=== PATIENT | female | born 1970 | race Caucasian/White ===

== ENCOUNTER 2018-07-13 12:30 | Inpatient (IN) ==
[2018-07-13] MEDS ORDERED: Albuterol 2.5 MG/3 ML NEBULIZER IH ONE ×2 (12:57→14:12)
[2018-07-13] MEDS ORDERED: cefOXitin 2,000 MG in Water for inj. (sterile) 20 ML 20 ML IVP ONE (12:57)
[2018-07-13] MEDS ORDERED: Ringers Solution, Lactated 1,000 ML IVC SCH ×3 (13:00→16:44)
[2018-07-13] MEDS ORDERED: Famotidine 20 MG/2 ML VIAL IVP ONE (13:04)
[2018-07-13] MEDS ORDERED: Acetaminophen IV 1,000 MG/100 ML INFUS..BTL IVPB ONE (13:04)
[2018-07-13] MEDS ORDERED: Scopolamine Patch 1.5 MG PATCH.TD72 TD ONE (13:04)
[2018-07-13] MEDS ORDERED: Pregabalin 75 MG CAPSULE PO ONE (13:05)
--- NOTE | 2018-07-13 13:08 | Anesthesia Evaluation PreOp ---
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: Denies Any Significant HX Other Medical History: Other (Morbid Obesity) Anesthesia History: No Prior Anesthetic Complications : No Test: Negative Alcohol Use: none Drug use: none Medications and Allergies Acyclovir [Zovirax] 800 mg PO 5XD #25 tablet 05/01/15 [Rx] MethylPREDNISolone [Medrol] 4 mg PO BIDWM #21 tablet 05/01/15 [Rx] Sprintec 28 Day Tablet 05/01/15 [History] TraMADol [Ultram] 50 mg PO Q6HR PRN #20 tablet 05/01/15 [Rx] Allergy/AdvReac Type Severity Reaction Status Date / Time No Known Allergies Allergy Verified 05/01/15 13:17 - Meds/Allergy Pre-op Review Medications Reviewed: Yes Allergies Reviewed: Yes Beta Blockers on Current Med List: No Anesthesia Results - Labs Hgb 12.7 Hct 38.0 Plt 319 Na 141 K 3.9 Creat 0.70 BUN 12 Anesthesia Exam O2 Sat Height 1.7 m Height 1.7 m Weight 127.006 kg Weight 127.006 kg O2 Sat by Pulse Oximetry 97 Vital Signs Temp Pulse Resp BP Pulse Ox 98.1 F 89 18 144/80 97 07/13/18 12:58 07/13/18 12:58 07/13/18 12:58 07/13/18 12:58 07/13/18 12:58 Height: 5'7 Weight: 280 lbs NPO (# of Hours): MN Pain Scale: 0 - HEENT Pupil (Motor): Pupils equal, EOMI Mallampati: II Teeth: Normal Oral Opening: Greater than 3 - BULL LADLE TENDER LOC: Oriented BULL LADLE TENDER Motor: Normal RUE, Normal LUE, Normal RLE, Normal LLE, Normal Face BULL LADLE TENDER Sensory: Normal: RUE, LUE, RLE, LLE, Face - Cardiac Rhythm: Regular Murmur: None JVD: No Carotid Bruit: No - Pulmonary Breath Sounds: bilateral Clear Respiratory Effort: Symmetrical Anesthesia Assess/Plan ASA Score: 3 ([place] Asthma) Level of consciousness: Cooperative Anesthetic Plan: General Autologous Blood: No Monitoring Plan: Standard Monitors Recovery Plan: PACU (Discussed GA, possible TAP Block if Open, agrees to proceed)
--- NOTE | 2018-07-13 13:30 | History & Physical Report ---
Date of Encounter: 07/13/18 Time of Encounter: 13:29 24 Hour HP Update - Instructions Instructions: If the History and Physical is less than 30 days old and was completed prior to A.M. admission and or procedure and has NOT been updated on calendar day of procedure please complete this update prior to performing procedure. - Update Patient reports changes in Medical Condition: No Changes in examination, assessment, or condition: No Changes in Medication: No Preop tests/diagnostics Reviewed: Yes Pre-Op MRSA Screen: Negative Surgery Remains Indicated: Yes Consent for Planned Operative Procedure(s) Verified: Yes - Pre-Operative Checklist Preoperative Checklist Indicated: Yes Prophylactic Antibiotic Ordered: Yes Home Medications Include Beta Mel: No Beta Mel Taken Today (Day of Surgery): No Beta Mel Taken Yesterday (Day Prior to Surgery): No Is VTE Prophylaxis Indicated?: Yes
[2018-07-13] MEDS ORDERED: Lidocaine -MPF 1% 5 ML AMPUL ONE (13:59)
[2018-07-13] MEDS ORDERED: *HR* FentaNYL (PF) 100 MCG/2 ML VIAL ONE (13:59)
[2018-07-13] MEDS ORDERED: *HR* Midazolam HCl 2 MG/2 ML VIAL ONE (14:00)
[2018-07-13] MEDS ORDERED: *HR* Morphine Sulfate/PF 10 MG/10 ML AMPUL ONE (14:00)
[2018-07-13] MEDS ORDERED: Dexamethasone 4 MG/ML VIAL ONE (14:03)
[2018-07-13] MEDS ORDERED: Lidocaine -MPF 2% 2 ML VIAL ONE (14:03)
[2018-07-13] MEDS ORDERED: *HR* Propofol 200 MG/20 ML VIAL IVP ONE (14:03)
[2018-07-13] MEDS ORDERED: Ondansetron 4 MG/2 ML VIAL ONE (14:03)
[2018-07-13] MEDS ORDERED: Lidocaine -MPF 4% 5 ML AMPUL ONE (14:04)
[2018-07-13] MEDS ORDERED: *HR* Rocuronium Bromide 50 MG/5 ML VIAL ONE (14:04)
[2018-07-13] MEDS ORDERED: *HR* Meperidine 25 MG/ML SYRINGE IVP PRN (14:12)
[2018-07-13] MEDS ORDERED: *HR* OxyCODONE/APAP 5/325 TABLET PO PRN (14:12)
[2018-07-13] MEDS ORDERED: Naloxone 0.4 MG/ML INJ IVP PRN (14:12)
[2018-07-13] MEDS ORDERED: *HR* Promethazine 25 MG/ML VIAL IVP PRN (14:12)
[2018-07-13] MEDS ORDERED: Ondansetron 4 MG/2 ML VIAL IVP ONE (14:12)
[2018-07-13] MEDS ORDERED: *HR* HYDROmorphone (PF) 1 MG/ML SYRINGE IVP PRN (14:12)
[2018-07-13] MEDS ORDERED: *HR* Belladonna Alkaloids/Opium 30 MG RECTAL SUPPOSITORY RC ONE (14:31)
--- NOTE | 2018-07-13 14:41 | Anesthesia Procedures ---
Date of Encounter: 07/13/18 Time of Encounter: 13:05 Procedures: Anesthesia - Epidural/Spinal Patient ID/Chart reviewed: Yes Patient examined: Yes Supplemental Oxygen: Nasal Cannula (2) Sedation: Versed (mg): 2 Sedation: Fentanyl (mcg): 50 Site Prep: Aseptic Technique Patient position: upright Local Anesthetic: Lidocaine 1% Interspace Used: L2-L3 Loss of Resistance (RUDY): No Blood: No CSF: Yes Paresthesia: No Spinal Needle Gauge: 24 Spinal Dose: 5 mg marcaine, duramorph 0.3mg
[2018-07-13] MEDS ORDERED: *HR* PHENYLEPHRINE 1,000 MCG/10 ML SYRINGE IVP ONE ×2 (14:59→15:19)
[2018-07-13] MEDS ORDERED: EPHEDrine 50 MG/ML VIAL ONE (15:22)
--- NOTE | 2018-07-13 16:48 | OB/GYN Procedure Note ---
Hysterectomy - Diagnosis Date of procedure: 07/13/18 Hysterectomy pre-op: other Post-op diagnosis: same - Procedure Hysterectomy procedure: total abdominal hysterectomy, bilateral salpingo- oophorectomy Surgeon: Fracisco Still Was there an dental office assistant present: Yes Centerless Grinding Machine Adjuster: Waleska Weston Anesthesia provider: Gil Fontana Anesthesia Type: Spinal Estimated blood loss (cc): 100 Complications: none Urine output (cc): 300 Specimens: right ovary, uterus, cervix, left ovary, right fallopian tube, left fallopian tube Disposition: PACU Narrative: Patient was taken to the operating room with IV in place. She was given general anesthesia as well as spinal she was then prepped and draped in usual sterile fashion. A Pfannenstiel incision was made through patient's previous scar. It was carried sharply through subcutaneous fatty tissue to the fascial layers reached. The fascia was then nicked in the midline meticulously incised bilaterally. The mesh was located. We began taking some sutures. We were able to get enough of the fascia that we felt we could close. At this time Dr. Rangel did step in to make sure we are okay and he felt that we closed with 0 Prolene. We felt that we could do the closure. The left and we continued the case. The fascia was then incised bilaterally passive was then dissected vertically for exposure. The rectus abdominis muscle sutures and separate the midline and the peritoneum was sharply entered dissected vertically. The O'Alvaro-O'Marx retractors placed and the bowel was packed away nicely and in the usual fashion. The uterus was located it was grasped with 2 curved Zoila's. The [place] was clamped and cut bilaterally are suture ligated with 0 Vicryl suture. The anterior and posterior leaf of the broad ligament were then developed. The infundibulopelvic ligament was then clamped cut and suture ligated 2 with 0 Vicryl suture taken the ovary and tubes with the specimen. The uterine arteries were then skeletonized bilaterally clamped cut and ligated with 0 Vicryl suture. Continue down the sides the uterus with straight Isaac's until the cervicovaginal margin was reached. We then placed 2 curved Heaneys around the cervix. Was then amputated from the vaginal cuff. The vaginal cuff was closed with 0 Vicryl suture in [id number]. Patient's abdomen was very deep. We used long instruments for this entire case. At this point the pelvic cavity was rinsed thoroughly with sterile water times 2C no bleeding the procedure was terminated. Sponge needle count correct 2. Instrument was removed and pelvic cavity. The subfascial region was examined. The fascia was then reapproximated with 0 Prolene from one edge the midline for the observation midline. Suprafascial region was rinsed thoroughly with sterile water 2. It was reapproximated with interrupted stitches of 3-0 Vicryl suture. The skin was then closed in subsequent fashion with 4-0 Monocryl in subsequent fashion. The patient was then cleansed and awoken she was then taken to the recovery room in stable condition.
--- NOTE | 2018-07-13 17:42 | Anesthesia Evaluation Post Op ---
Date of Encounter: 07/13/18 Time of Encounter: 17:40 - Vital Signs Vital Signs: Vital Signs/O2 Sat, Most Current Temp Pulse Resp BP Pulse Ox 98.6 F 93 18 118/73 94 07/13/18 16:57 07/13/18 17:27 07/13/18 17:27 07/13/18 17:27 07/13/18 17:27 - Lungs Lungs: Clear Ascult./Percussion - Airway Airway: Non-obstructed, Obstructed - Cardiovascular Regular Rate, Baseline Rhythm - Mental Status Mental Status: Asleep with brisk response to light stimulation - Pain Pain Scale: 0 Pain Scale used: Numeric (1 - 10) - Nausea Vomiting Nausea Vomiting: Not Present - Hydration Hydration: Ice chips, Golden catheter Notes: 07/13/18 17:41 Vital Signs/O2 Sat, Most Current Temp Pulse Resp BP Pulse Ox 98.6 F 93 18 118/73 94 07/13/18 16:57 07/13/18 17:27 07/13/18 17:27 07/13/18 17:27 07/13/18 17:27 - Discharge PostOp Status: Transfer Patient to floor
[2018-07-13] MEDS ORDERED: Acetaminophen IV 1,000 MG/100 ML INFUS..BTL IVPB SCH (18:00)
[2018-07-13] MEDS: Acetaminophen IV 1,000 MG/100 ML INFUS..BTL IVPB SCH (21:32)
[2018-07-13] MEDS: Ondansetron 4 MG/2 ML VIAL IVP PRN (21:39)
[2018-07-14] MEDS: ceFAZolin 1,000 MG in Water for inj. (sterile) 20 ML 10 ML IVP SCH ×3 (00:01→15:40)
[2018-07-14] MEDS: Acetaminophen IV 1,000 MG/100 ML INFUS..BTL IVPB SCH ×3 (03:08→15:40)
[2018-07-14] MEDS: Ondansetron 4 MG/2 ML VIAL IVP PRN (06:33)
[2018-07-14 06:42] LABS: Basophils % 0.1 %; Hematocrit 35.2 % (35.3-44.9); Hemoglobin 11.7 g/dL (11.5-15.4); Immature Granulocytes % 0.5 % (0-4); Lymphocytes # 0.9 K/mcL (0.6-4.6); Lymphocytes % 4.5 %; Mean Corpuscular HGB Conc 33.2 g/dL (31.6-35.5); Mean Corpuscular Hemoglobin 29.6 pg (28.0-33.3); Mean Corpuscular Volume 89.1 fL (83.0-100.0); Mean Platelet Volume 11.4 fL (9.4-12.4); Monocytes # 0.9 K/mcL (0.0-1.3); Monocytes % 4.2 %; Neutrophils # 18.4 K/mcL (1.6-8.9); Platelet Count 284 K/mcL (140-400); Red Blood Count 3.95 M/mcL (3.82-4.97); Red Cell Distribution Width 12.2 % (11.5-14.5); Segmented Neutrophils % 90.7 %
--- NOTE | 2018-07-14 14:41 | Event Note ---
Date of Encounter: 07/14/18 Time of Encounter: 09:00 S: 48yo female s/p TIFFANY/BSO who presents for scheduled surgery for menorrhagia and d iscomfort. POD#1. Pain controlled per patient, does report intermittent nausea. Denies vaginal bleeding or abdominal bleeding. Not yet passing flatus. Golden removed, awaiting spontaneous void. Sitting up in chair without assistance. Able to ambulate with assistane. O: Labs WNL VSS, HDS, afebrile General: well-appearing, appears stated age Abdomen: soft, non-TTP, +BS Incision: CDI, dressing in place, no shadowing, to be removed on POD#2 Pelvic: deferred A/P: 48yo s/p TIFFANY/BSO, POD#1 for menorrhagia and dysmenorrhea 1. Postoperative management - pain controlled with po meds only - OK to ADAT not yet passing flatus, no BM, non-acute abdomen - heme: EBL low intraoperatively, CBC ordered this AM - infection ppx: ancef x 24hr postop, also given intraoperatively - DVT ppx: continuous SCDs while inpatient - OK for tylenol and ibuprofen use Dispo: Patient to remain inpatient until POD#2. Continue to progress toward milestone(s). Likely for DC to home tomorrow. MD MIESHA
[2018-07-14] MEDS ORDERED: *HR* OxyCODONE/APAP 5/325 TABLET PO PRN (18:26)
[2018-07-14] MEDS ORDERED: Ondansetron ODT 4 MG TAB.RAPDIS SL PRN (18:27)
[2018-07-14] MEDS: Ibuprofen 400 MG TABLET PO PRN (19:18)
[2018-07-15] MEDS: Ibuprofen 400 MG TABLET PO PRN ×2 (00:23→04:29)
--- NOTE | 2018-07-15 07:13 | Event Note ---
Date of Encounter: 07/15/18 Time of Encounter: 07:10 DAILY PROGRESS NOTE DAY 2 S: 48yo female s/p TIFFANY/BSO who presents for scheduled surgery for menorrhagia and discomfort. POD#2. IV infiltrated overnight, converted all IV medication(S) to PO. Pain adequately controlled with percocet. Denies vaginal bleeding or abdominal bleeding. Passing flatus. Spontaneously voiding. Ambulating, tolerated a regular diet. O: Labs WNL VSS, HDS, afebrile General: well-appearing, appears stated age Abdomen: soft, non-TTP, +BS Incision: CDI, dressing in place, dressing removed today, incision closed by suture. Pelvic: deferred A/P: 48yo s/p TIFFANY/BSO, POD#2 for menorrhagia and dysmenorrhea 1. Postoperative management - pain controlled with po meds only - tolerating regular diet without n/v/d, non-acute abdomen on exam - heme: EBL low intraoperatively, CBC WNL - infection ppx: ancef x 24hr postop, also given intraoperatively; afebrile, VSS, HDS - DVT ppx: continuous SCDs while inpatient - OK for tylenol and ibuprofen use Dispo: Discharged to home today on POD#2. MD MIESHA
--- NOTE | 2018-07-15 07:18 | Discharge Summary ---
Date of Encounter: 07/15/18 Time of Encounter: 07:10 - Discharge Diagnosis (1) S/P abdominal hysterectomy Priority: Primary Status: Acute - Discharge Medications Prescriptions: Oxycodone HCl/Acetaminophen [Percocet 5-325 mg Tablet] 1 each PO Q4-6H PRN 10 Days #20 tablet PRN Reason: Pain Home Medications: Cholecalciferol (Vitamin D3) [Vitamin D] 5,000 unit PO DAILY 07/13/18 [History] Cyanocobalamin (Vitamin B-12) [Vitamin B-12] 5,000 mcg SL DAILY 07/13/18 [History] L.acidoph,Paracasei, B.lactis [Probiotic] 1 cap PO DAILY 07/13/18 [History] Magnesium Oxide [Magnesium] 250 mg PO DAILY 07/13/18 [History] Mv,Ca,Fe,Min/FA/Guarana/Caff [One Daily Tablet] 1 each PO DAILY 07/13/18 [History] Potassium 99 mg PO DAILY 07/13/18 [History] Turmeric Root Extract [Turmeric] 500 mg PO DAILY 07/13/18 [History] Oxycodone HCl/Acetaminophen [Percocet 5-325 mg Tablet] 1 each PO Q4-6H PRN 10 Days #20 tablet 07/15/18 [Rx] Allergies/Adverse Reactions: Allergy/AdvReac Type Severity Reaction Status Date / Time No Known Allergies Allergy Verified 07/13/18 13:11 Data Procedures and tests throughout hospitalization: Laboratory Tests 07/14/18 06:07 WBC 20.3 H RBC 3.95 Hgb 11.7 Hct 35.2 L MCV 89.1 MCH 29.6 MCHC 33.2 RDW 12.2 Plt Count 284 MPV 11.4 Immature Gran % 0.5 Seg Neutrophils % 90.7 Lymphocytes % 4.5 Monocytes % 4.2 Eosinophils % 0.0 Basophils % 0.1 Neutrophils # 18.4 H Lymphocytes # 0.9 Monocytes # 0.9 Eosinophils # 0.0 Basophils # 0.0 Labs on day of discharge: None performed on POD#2, normal labs on POD#1. 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 Uncomplicated abdominal surgery along with uneventful postoperative hospitalization. She was appropriately transitioned to PO meds from IV on POD#1. Able to tolerate a regular diet with intermittent but controlled nausea. PFannenstiel skin incision was closed using suture, well- aligned and well-healed. Appropriately tender to palpate abdomen but non-acute. PAtient was discharged to home with abdominal hyst postoperative instruction(s) on POD#2. She was scheduled for follow up with Dr. Still in 3-4 weeks. Discharged to home with 20# of percocet and given precaution(s) before leaving the floor. Deena Ortega MD OBGYN [facility] Time Attestation: Total time spent providing and/or coordinating discharge services: Exam - Constitutional Vitals: Temp Pulse Resp BP Pulse Ox 98.1 F 62 16 112/61 99 07/15/18 04:00 07/15/18 04:00 07/15/18 04:30 07/15/18 04:00 07/15/18 04:00 General appearance IM: A&O X 0 - Respiratory Respiratory exam: Present: CTAB - Cardiovascular Cardiovascular exam IM: Present: RRR - GI/Abdominal GI/Abdominal exam IM: normal bowel sounds Incision: normal, intact - Rectal Rectal exam: deferred - External exam: normal external exam - Extremities Exam Extremities exam IM: Present: full ROM - Neurological Exam Neurological exam: CN II-XII intact - VTE Documentation of Mechanical Device: Intermittent pneumatic compression device
[2018-07-15 09:03] VITALS: BP 113/65
== END 2018-07-15 13:12 | disposition home or self-care (01) | DRG 742 ==
LOC: SAMDAY 12:30 → 1NENUOBS 17:48
PROVIDERS: ADMIT Obstetrics & Gynecology; ATTEND Obstetrics & Gynecology

== ENCOUNTER 2018-10-09 17:08 | Observation (INO) ==
--- NOTE | 2018-10-09 17:56 | Emergency Department Note ---
Disposition Clinical Impression: Right flank pain Disposition: Still a Patient Referrals: NONE,PCP [Primary Care Provider] - Forms: ED Satisfaction Letter, Work/School Release Abdominal Pain HPI - General Chief Complaint: ED Abdominal Pain Stated Complaint: Post Surg. Pain/Infection Time Seen by Provider: 10/09/18 17:37 Source: patient Mode of arrival: ambulatory Limitations: no limitations Nursing Notes Reviewed: Yes Vital Signs Reviewed: Yes - History of Present Illness HPI Narrative: 48-year-old female otherwise healthy recently had complete hysterectomy done due to leiomyomas approximately in July presents to the emergency department for right-sided flank pain. Patient states this is the same pain she has had for approximately one month she had she was seen by Dr. Gonzalez prior to the gynecological surgery been done and he did a ultrasound as well as CT scan at that time they did not find any signs of cholecystitis. Patient states the pain is continues and has gotten more sharp and more frequent now. Says worse with any type of movement. Patient states the pain is 6 out of 10 located in the right flank nonradiating any type of movement or jumping makes it worse. Does not change with eating food. Otherwise there is no fevers, chills, nausea, vomiting, headache, blurry vision, neck pain, back pain, chest pain, shortness of breath, changes in bowel movement, pain with urination, pain or tingling going down the arms or legs or generalized weakness. Pain Scale: 10 - Related Data Home Medications Medication Instructions Recorded Confirmed Cholecalciferol (Vitamin D3) 5,000 unit PO DAILY 07/13/18 07/13/18 [Vitamin D] Cyanocobalamin (Vitamin B-12) 5,000 mcg SL DAILY 07/13/18 07/13/18 [Vitamin B-12] L.acidoph,Paracasei, B.lactis 1 cap PO DAILY 07/13/18 07/13/18 [Probiotic] Magnesium Oxide [Magnesium] 250 mg PO DAILY 07/13/18 07/13/18 Mv,Ca,Fe,Min/FA/Guarana/Caff [One 1 each PO DAILY 07/13/18 07/13/18 Daily Tablet] Potassium 99 mg PO DAILY 07/13/18 07/13/18 Turmeric Root Extract [Turmeric] 500 mg PO DAILY 07/13/18 07/13/18 Allergies Allergy/AdvReac Type Severity Reaction Status Date / Time No Known Allergies Allergy Verified 07/13/18 13:11 All systems ED: reviewed and negative except as stated. Review of Systems: As Per HPI Abdominal Pain PMH - Past Medical History Medical history: Reports: asthma, other Female Surgical History: Reports: hysterectomy Psychiatric history: Reports: anxiety, depression - Social History Smoking status: Never smoker Alcohol use: Reports: none Drug use: Reports: none Physical Exam - General Limitations: no limitations General appearance: alert, in no apparent distress - Head Head exam: atraumatic, normocephalic, normal inspection - Eye Eye exam: Present: normal appearance, PERRL, EOMI - ENT ENT exam: normal exam, normal oropharynx, mucous membranes moist - Neck Neck exam: Present: normal inspection, full ROM, trachea midline - Chest Chest inspection: Present: normal inspection, symmetric chest wall rise, tenderness (Mild chest tenderness while palpating the lower portion of the right chest right near the 11th and 12th rib margin. No noticeable erythema no noticeable trauma to the area pain with palpation.) - Respiratory Respiratory exam: Present: normal lung sounds bilaterally - Cardiovascular Cardiovascular exam: Present: regular rate, normal rhythm, normal heart sounds - Abdominal Exam Abdominal exam: Present: soft, Non-Tender, normal bowel sounds. Absent: tenderness, distention, guarding, rebound, rigidity, Pinedo's sign, Rovsing's sign, tenderness at McBurney's Point - Extremities Exam Extremities exam: Present: normal inspection, full ROM. Absent: tenderness, pedal edema - Back Exam Back exam: Present: normal inspection, full ROM. Absent: tenderness - Neurological Exam Neurological exam: Present: alert, oriented X3 - Skin Skin exam: Present: warm, dry, intact, normal color Course Course Narrative: Patient refusing any pain medications. We have basic labs including CBC, BMP, hepatic panel as well as get a CT abdomen and pelvis without contrast. Disposition pending results Vital Signs Temperature 97.6 F 10/09/18 17:11 Pulse Rate 84 10/09/18 17:11 Respiratory Rate 18 10/09/18 17:11 Blood Pressure 172/105 10/09/18 17:11 O2 Sat by Pulse Oximetry 100 10/09/18 17:11 Temperature 97.6 F 10/09/18 17:11 Pulse Rate 84 10/09/18 17:11 Respiratory Rate 18 10/09/18 17:11 Blood Pressure 172/105 10/09/18 17:11 O2 Sat by Pulse Oximetry 100 10/09/18 17:11 Oxygen Delivery Oxygen Delivery Room Air Abdominal Pain - MDM Narrative Medical decision making narrative: Patient's lab and imaging are not back at this time. Patient will be signed out to Dr. Mcgraw please follow-up with their note for full plan and disposition. Stable at time of sign out
--- NOTE | 2018-10-09 18:26 | Emergency Department Note ---
Disposition Clinical Impression: Abdominal pain Qualifiers: Abdominal location: generalized Qualified Code(s): R10.84 - Generalized abdominal pain Disposition: Still a Patient Referrals: NONE,PCP [Primary Care Provider] - Forms: ED Satisfaction Letter, Work/School Release General Adult HPI - General Chief complaint: ED Abdominal Pain Stated complaint: Post Surg. Pain/Infection Time Seen by Provider: 10/09/18 17:37 Source: patient Mode of arrival: ambulatory Limitations: no limitations Nursing Notes Reviewed: Yes Vital Signs Reviewed: Yes - History of Present Illness HPI Narrative: Attestation note I examined this patient and my medical decision-making was reviewed with the Resident Physician/NETWORKING SPECIALIST/PA. I agree with the documented findings, disposition and treatment plan as described except to the extent set forth below Patient seen with physician construction assistant Heather Isabel, please see copy of her note for details of this patient encounter Briefly: 48-year-old female had a total abdominal hysterectomy recently [facility]'s been having persistent right flank pain. Concern MIP infection. Although she has had no fever nausea vomiting just hurts when she moves no postprandial association she was worked up preop for gallbladder issues and consulted on by a surgeon who said that everything was okay as far as her gallbladder. Patient abdomen is soft there is no surgical tenderness noted patient get a CBC chemistry panel and abdominal pelvic CT scan with no contrast and urinalysis. Disposition pending. Patient stable Pain Scale: 10 - Related Data Home Medications Medication Instructions Recorded Confirmed Cholecalciferol (Vitamin D3) 5,000 unit PO DAILY 07/13/18 07/13/18 [Vitamin D] Cyanocobalamin (Vitamin B-12) 5,000 mcg SL DAILY 07/13/18 07/13/18 [Vitamin B-12] L.acidoph,Paracasei, B.lactis 1 cap PO DAILY 07/13/18 07/13/18 [Probiotic] Magnesium Oxide [Magnesium] 250 mg PO DAILY 07/13/18 07/13/18 Mv,Ca,Fe,Min/FA/Guarana/Caff [One 1 each PO DAILY 07/13/18 07/13/18 Daily Tablet] Potassium 99 mg PO DAILY 07/13/18 07/13/18 Turmeric Root Extract [Turmeric] 500 mg PO DAILY 07/13/18 07/13/18 Allergies Allergy/AdvReac Type Severity Reaction Status Date / Time No Known Allergies Allergy Verified 07/13/18 13:11 Past Medical History - Past Medical History Medical history: Reports: asthma, other Psychiatric history: Reports: anxiety, depression - Social History Smoking Status: Never smoker Smokeless Tobacco Status: No Alcohol use: Reports: none Drug use: Reports: none Physical Exam - General Limitations: no limitations General appearance: alert, in no apparent distress Course Vital Signs Temperature 97.6 F 10/09/18 17:11 Pulse Rate 84 10/09/18 17:11 Respiratory Rate 18 10/09/18 17:11 Blood Pressure 172/105 10/09/18 17:11 O2 Sat by Pulse Oximetry 100 10/09/18 17:11 Temperature 97.6 F 10/09/18 17:11 Pulse Rate 84 10/09/18 17:11 Respiratory Rate 18 10/09/18 17:11 Blood Pressure 172/105 10/09/18 17:11 O2 Sat by Pulse Oximetry 100 10/09/18 17:11 Oxygen Delivery Oxygen Delivery Room Air
[2018-10-09 18:46] LABS: Basophils # 0.1 K/mcL (0.0-0.2); Basophils % 0.5 %; Eosinophils # 0.2 K/mcL (0.0-0.6); Hematocrit 37.7 % (35.3-44.9); Hemoglobin 12.5 g/dL (11.5-15.4); Immature Granulocytes % 0.3 % (0-4); Lymphocytes # 3.2 K/mcL (0.6-4.6); Lymphocytes % 29.3 %; Mean Corpuscular HGB Conc 33.2 g/dL (31.6-35.5); Mean Corpuscular Hemoglobin 29.1 pg (28.0-33.3); Mean Corpuscular Volume 87.7 fL (83.0-100.0); Monocytes # 0.8 K/mcL (0.0-1.3); Monocytes % 7.5 %; Neutrophils # 6.6 K/mcL (1.6-8.9); Platelet Count 240 K/mcL (140-400); Red Cell Distribution Width 12.4 % (11.5-14.5); Segmented Neutrophils % 60.4 %
[2018-10-09 19:06] LABS: Alanine Aminotransferase 39 Units/L (7-52); Albumin 4.4 g/dL (3.5-5.7); Albumin/Globulin Ratio 1.6 (1.1-2.2); Alkaline Phosphatase 86 Units/L (34-104); Aspartate Amino Transferase 18 Units/L (13-39); BUN/Creatinine Ratio 18 (6-26); Bilirubin,Direct 0.1 mg/dL (0.0-0.2); Bilirubin,Indirect 0.2 mg/dL (0.0-1.2); Bilirubin,Total 0.3 mg/dL (0.3-1.0); Blood Urea Nitrogen 14 mg/dL (6-20); Calcium 9.2 mg/dL (8.6-10.3); Carbon Dioxide 28 mEq/L (23-29); Chloride 106 mEq/L (98-107); Globulin 2.8 g/dL (2.4-3.5); Glucose 103 mg/dL (70-105); Osmolality,Calculated 295 (280-300); Potassium 3.5 mEq/L (3.5-5.1); Sodium 142 mEq/L (136-145); Total Protein 7.2 g/dL (6.4-8.9); eGFR For Non-African Americans > 60 (> 60)
[2018-10-09 19:51] LABS: Bilirubin,Urine Negative (Negative); Blood,Urine Trace (Negative); Clarity,Urine Clear (Clear); Color,Urine Yellow (Yellow); Glucose,Urine (UA) Normal (Normal); Ketones,Urine Negative (Negative); Leukocyte Esterase,Urine Trace (Negative); Nitrite,Urine Negative (Negative); Protein,Urine Negative (Neg-Trace); Specific Gravity,Urine 1.016 (1.010-1.025); Urobilinogen,Urine Normal (Normal)
[2018-10-09 19:53] LABS: Bacteria,Urine None Seen per hpf (None-Few); Hyaline Casts,Urine None Seen per lpf (None-Few); Squamous Epithelial Cell,Urine Many per lpf (None-Few); WBC,Urine 0-3 per hpf (0-3)
--- NOTE | 2018-10-09 21:38 | Emergency Department Note ---
Disposition Clinical Impression: Right flank pain Abdominal pain Qualifiers: Abdominal location: unspecified location Qualified Code(s): R10.9 - Unspecified abdominal pain Hernia, ventral Qualifiers: Obstruction and gangrene presence: without obstruction or gangrene Qualified Code(s): K43.9 - Ventral hernia without obstruction or gangrene Disposition: Admitted As Inpatient Condition: Fair Referrals: NONE,PCP [Primary Care Provider] - Forms: ED Satisfaction Letter, Work/School Release Time of Disposition: 21:38 General Adult HPI - General Chief complaint: ED Abdominal Pain Stated complaint: Post Surg. Pain/Infection Time Seen by Provider: 10/09/18 17:37 Source: patient Mode of arrival: ambulatory Limitations: no limitations - History of Present Illness Pain Scale: 4 - Related Data Home Medications Medication Instructions Recorded Confirmed Cholecalciferol (Vitamin D3) 5,000 unit PO DAILY 07/13/18 07/13/18 [Vitamin D] Cyanocobalamin (Vitamin B-12) 5,000 mcg SL DAILY 07/13/18 07/13/18 [Vitamin B-12] L.acidoph,Paracasei, B.lactis 1 cap PO DAILY 07/13/18 07/13/18 [Probiotic] Magnesium Oxide [Magnesium] 250 mg PO DAILY 07/13/18 07/13/18 Mv,Ca,Fe,Min/FA/Guarana/Caff [One 1 each PO DAILY 07/13/18 07/13/18 Daily Tablet] Potassium 99 mg PO DAILY 07/13/18 07/13/18 Turmeric Root Extract [Turmeric] 500 mg PO DAILY 07/13/18 07/13/18 Allergies Allergy/AdvReac Type Severity Reaction Status Date / Time No Known Allergies Allergy Verified 07/13/18 13:11 Past Medical History - Past Medical History Medical history: Reports: asthma, other Psychiatric history: Reports: anxiety, depression - Social History Smoking Status: Never smoker Smokeless Tobacco Status: No Alcohol use: Reports: none Drug use: Reports: none Physical Exam - General Limitations: no limitations General appearance: alert, in no apparent distress Course Vital Signs Temperature 97.6 F 10/09/18 17:11 Pulse Rate 84 10/09/18 17:11 Respiratory Rate 18 10/09/18 17:11 Blood Pressure 172/105 10/09/18 17:11 O2 Sat by Pulse Oximetry 100 10/09/18 17:11 Temperature 97.6 F 10/09/18 17:11 Pulse Rate 89 10/09/18 20:50 Respiratory Rate 16 10/09/18 20:50 Blood Pressure 126/70 10/09/18 20:50 O2 Sat by Pulse Oximetry 98 10/09/18 20:50 Oxygen Delivery Oxygen Delivery Room Air Medical Decision Making - Lab Data Result diagrams: 10/09/18 18:35 10/09/18 18:35 Lab Results 10/09/18 10/09/18 10/09/18 Range/Units 18:35 18:35 19:42 WBC 10.9 (4.3-11.1) K/mcL RBC 4.30 (3.82-4.97) M/mcL Hgb 12.5 (11.5-15.4) g/dL Hct 37.7 (35.3-44.9) % MCV 87.7 (83.0-100.0) fL MCH 29.1 (28.0-33.3) pg MCHC 33.2 (31.6-35.5) g/dL RDW 12.4 (11.5-14.5) % Plt Count 240 (140-400) K/mcL MPV 11.0 (9.4-12.4) fL Immature Gran % 0.3 (0-4) % Seg Neutrophils % 60.4 % Lymphocytes % 29.3 % Monocytes % 7.5 % Eosinophils % 2.0 % Basophils % 0.5 % Neutrophils # 6.6 (1.6-8.9) K/mcL Lymphocytes # 3.2 (0.6-4.6) K/mcL Monocytes # 0.8 (0.0-1.3) K/mcL Eosinophils # 0.2 (0.0-0.6) K/mcL Basophils # 0.1 (0.0-0.2) K/mcL Sodium 142 (136-145) mEq/L Potassium 3.5 (3.5-5.1) mEq/L Chloride 106 (98-107) mEq/L Carbon Dioxide 28 (23-29) mEq/L BUN 14 (6-20) mg/dL Creatinine 0.78 (0.60-1.20) mg/dL Est GFR ( Amer) > 60 (> 60) Est GFR (Non-Af Amer) > 60 (> 60) BUN/Creatinine Ratio 18 (6-26) Glucose 103 (70-105) mg/dL Calculated Osmolality 295 (280-300) Calcium 9.2 (8.6-10.3) mg/dL Total Bilirubin 0.3 (0.3-1.0) mg/dL Direct Bilirubin 0.1 (0.0-0.2) mg/dL Indirect Bilirubin 0.2 (0.0-1.2) mg/dL AST 18 (13-39) Units/L ALT 39 (7-52) Units/L Alkaline Phosphatase 86 (34-104) Units/L Serum Total Protein 7.2 (6.4-8.9) g/dL Albumin 4.4 (3.5-5.7) g/dL Globulin 2.8 (2.4-3.5) g/dL Albumin/Globulin Ratio 1.6 (1.1-2.2) Urine Color Yellow (Yellow) Urine Clarity Clear (Clear) Urine pH 6.0 (5.0-8.0) pH Units Ur Specific [place] 1.016 (1.010-1.025) Urine Protein Negative (Neg-Trace) mg/dL Urine Glucose (UA) Normal (Normal) mg/dL Urine Ketones Negative (Negative) mg/dL Urine Blood Trace H (Negative) Urine Nitrite Negative (Negative) Urine Bilirubin Negative (Negative) Urine Urobilinogen Normal (Normal) mg/dL Ur Leukocyte Esterase Trace H (Negative) Urine Microscopic RBC 3-5 H (0-3) per hpf Urine Microscopic WBC 0-3 (0-3) per hpf Ur Squamous Epith Cells Many H (None-Few) per lpf Urine Bacteria None Seen (None-Few) per hpf Hyaline Casts None Seen (None-Few) per lpf Attestation Statement - Attestation Attestation: I examined this patient and my medical decision-making was reviewed with the [employer]/PA/Advanced Practice Nurse/Resident Physician. I agree with the documented findings, disposition and treatment plan as described except to the extent set forth below. I did see the patient is spoke with her and examined her and did assume care from Dr. Damon and Dr. Rhodes and I did review the CT scan showing what looks like an incarcerated hernia and when I examine the patient due to body habitus I was not able to palpate a hernia that I could reduce so I did speak with Dr. Pierce Peacock who accepts the patient for admission under her service and asked that she be given pain medicine here as well as normal saline 125 ml per hour and also sublingual oxycodone 5 mg every 4 hours when necessary. Patient to remain nothing by mouth. Patient will be admitted to her service. [id number]
[2018-10-09] MEDS ORDERED: *HR* FentaNYL (PF) 100 MCG/2 ML VIAL IVP ONE (21:41)
[2018-10-09] MEDS ORDERED: Ondansetron 4 MG/2 ML VIAL IVP ONE (21:41)
[2018-10-09] MEDS ORDERED: 0.9 % Sodium Chloride 1,000 ML IVC ONE (21:41)
[2018-10-10] MEDS ORDERED: OXYCODONE Oral CONC 10 MG/0.5 ML ORAL.SYG SL PRN
--- NOTE | 2018-10-10 06:30 | General Surg History&Physical ---
Date of Encounter: 10/10/18 Time of Encounter: 06:15 Assessment and Plan (1) Right upper quadrant abdominal pain Current Visit: Yes Status: Acute The assessment and plan as outlined above was discussed with the patient and/or family members who expressed understanding and agreement. All questions were answered. Discussed with the patient her diagnosis of RUQ abd pain and incisional ventral hernia. RUQ abd pain is not related to VH. VH can be addressed on an outpt basis. Will check HIDA with GB EF to complete evaluation of GB. If HIDA is + will recommend lap latisha. If HIDA is negative will recommend EGD/Colonoscopy and, perhaps, GI consult outpt for irritable bowel syndrome. (2) Hernia, ventral Current Visit: Yes Status: Acute The assessment and plan as outlined above was discussed with the patient and/or family members who expressed understanding and agreement. All questions were answered. Qualifiers: Obstruction and gangrene presence: without obstruction or gangrene Qualified Code(s): K43.9 - Ventral hernia without obstruction or gangrene History of Present Illness Chief complaint: right abdominal pain HPI: Ms. Martinez is a 48 year old female who presents to [facility] [place] ED complaining of severe right abdominal pain. She states that the pain is chronic and intermittent however, this acute episode is severe and unremitting. She has a hyster in Jul. and now has an incisional VH. She states that the pain has been episodically progressing since before that time. GB US from 06/26 was normal. She denies any n/v. She reports regular BM. She denies SOB or CP. She does report hx asthma. She denies any colonoscopy but, is due for a screening and has a +family hx colon cancer. Past Med Surg Social Fam HX - Past Medical History Medical history: asthma, other Additional medical history: chronic UTI, cysts kidneys, tubal ligation Psychiatric history: anxiety, depression - Past Surgical History Surgical History: appendectomy, , hysterectomy Additional surgical history: 2 c-sections, 2 hernia repairs with mesh - Social History Smoking Status: Never smoker Smokeless Tobacco Status: No Alcohol use: none Drug use: none Medications and Allergies Cholecalciferol (Vitamin D3) [Vitamin D] 5,000 unit PO DAILY 07/13/18 [History] Cyanocobalamin (Vitamin B-12) [Vitamin B-12] 5,000 mcg SL DAILY 07/13/18 [History] L.acidoph,Paracasei, B.lactis [Probiotic] 1 cap PO DAILY 07/13/18 [History] Magnesium Oxide [Magnesium] 250 mg PO DAILY 07/13/18 [History] Mv,Ca,Fe,Min/FA/Guarana/Caff [One Daily Tablet] 1 each PO DAILY 07/13/18 [History] Potassium 99 mg PO DAILY 07/13/18 [History] Turmeric Root Extract [Turmeric] 500 mg PO DAILY 07/13/18 [History] Allergy/AdvReac Type Severity Reaction Status Date / Time Tree nuts Allergy Difficulty Uncoded 10/09/18 23:27 Breathing Review of Systems All systems PM: The remainder of the systems were reviewed and are negative - Constitutional as per HPI, no anorexia, no fatigue, no fever(s), no headache(s), no weakness, no weight gain, no weight loss - EENT Nose, mouth and throat: no dizziness, no dysphagia, no sore throat - Cardiovascular no chest pain, no dyspnea, no edema - Respiratory no cough, no dyspnea, no wheezing - Gastrointestinal abdominal pain, bloating, cramping, no constipation, no diarrhea, no early satiety, no nausea, no vomiting - Genitourinary Genitourinary: no difficulty urinating, no difficulty voiding, no dysuria, no urinary urgency - Musculoskeletal no back pain, no limited range of motion, no neck pain - Integumentary dry skin, no pruritus, no wounds, no jaundice - Neurological no confusion, no dizziness, no focal weakness, no syncope, no weakness - Hematologic/Lymphatic no easy bleeding, no easy bruising General Surgery Exam Initial Vital Signs Temp Pulse Resp BP Pulse Ox 97.6 F 84 18 172/105 100 10/09/18 17:11 10/09/18 17:11 10/09/18 17:11 10/09/18 17:11 10/09/18 17:11 - General physical appearance well developed, well nourished, no distress - Eyes PERRL, normal ocular movement. negative: icteric - ENT normal mucosa, no congestion. negative: nasal discharge, dry mucosa - Neck no masses, no lymphadectomy, no venous distension - Respiratory normal respiratory effort, clear to auscultation - Cardiovascular Cardiovascular exam: Present: RRR - Abdomen Abdomen general surgery: Present: bowel sounds present, soft, tender. Absent: guarding, rebound Abdominal Tenderness: Present: RUQ - Integumentary Integumentary general surgery: Present: warm and dry - Neurologic Present: CN 2-12 grossly intact - Musculoskeletal Present: normal gait, normal posture - Psychiatric Psychiatric general surgery: Present: A&Ox3, appropriate Results - Labs 10/09/18 18:35 10/09/18 18:35 Abnormal lab results POC Glucose 111 mg/dL (70-99) H 10/10/18 05:02 Urine Blood Trace (Negative) H 10/09/18 19:42 Ur Leukocyte Esterase Trace (Negative) H 10/09/18 19:42 Urine Microscopic RBC 3-5 per hpf (0-3) H 10/09/18 19:42 Ur Squamous Epith Cells Many per lpf (None-Few) H 10/09/18 19:42 Diabetes panel 10/09/18 Range/Units 18:35 Sodium 142 (136-145) mEq/L Potassium 3.5 (3.5-5.1) mEq/L Chloride 106 (98-107) mEq/L Carbon Dioxide 28 (23-29) mEq/L BUN 14 (6-20) mg/dL Creatinine 0.78 (0.60-1.20) mg/dL Glucose 103 (70-105) mg/dL Calcium 9.2 (8.6-10.3) mg/dL AST 18 (13-39) Units/L ALT 39 (7-52) Units/L Alkaline Phosphatase 86 (34-104) Units/L Albumin 4.4 (3.5-5.7) g/dL Calcium panel 10/09/18 Range/Units 18:35 Calcium 9.2 (8.6-10.3) mg/dL Albumin 4.4 (3.5-5.7) g/dL Pituitary panel 10/09/18 Range/Units 18:35 Sodium 142 (136-145) mEq/L Potassium 3.5 (3.5-5.1) mEq/L Chloride 106 (98-107) mEq/L Carbon Dioxide 28 (23-29) mEq/L BUN 14 (6-20) mg/dL Creatinine 0.78 (0.60-1.20) mg/dL Glucose 103 (70-105) mg/dL Calcium 9.2 (8.6-10.3) mg/dL Adrenal panel 10/09/18 Range/Units 18:35 Sodium 142 (136-145) mEq/L Potassium 3.5 (3.5-5.1) mEq/L Chloride 106 (98-107) mEq/L Carbon Dioxide 28 (23-29) mEq/L BUN 14 (6-20) mg/dL Creatinine 0.78 (0.60-1.20) mg/dL Glucose 103 (70-105) mg/dL Calcium 9.2 (8.6-10.3) mg/dL Total Bilirubin 0.3 (0.3-1.0) mg/dL AST 18 (13-39) Units/L ALT 39 (7-52) Units/L Alkaline Phosphatase 86 (34-104) Units/L Albumin 4.4 (3.5-5.7) g/dL All other labs normal. - Imaging CT scan - abdomen: image reviewed (Incisional ventral hernia with SB in sac and +fat stranding but, no signs of obstruction) CT scan - pelvis: image reviewed US - abdomen: image reviewed (from 06/2018; normal GB)
[2018-10-10] MEDS ORDERED: Pantoprazole 40 MG VIAL IVP SCH (09:15)
[2018-10-10] MEDS ORDERED: Ondansetron 4 MG/2 ML VIAL IVP PRN (09:15)
[2018-10-10] MEDS ORDERED: 0.9 % Sodium Chloride 1,000 ML IVC SCH (09:15)
[2018-10-10 09:55] LABS: Basophils # 0.1 K/mcL (0.0-0.2); Basophils % 0.5 %; Eosinophils # 0.2 K/mcL (0.0-0.6); Hematocrit 36.5 % (35.3-44.9); Hemoglobin 12.2 g/dL (11.5-15.4); Immature Granulocytes % 0.6 % (0-4); Lymphocytes # 2.8 K/mcL (0.6-4.6); Lymphocytes % 29.2 %; Mean Corpuscular HGB Conc 33.4 g/dL (31.6-35.5); Mean Corpuscular Hemoglobin 28.9 pg (28.0-33.3); Mean Corpuscular Volume 86.5 fL (83.0-100.0); Mean Platelet Volume 11.4 fL (9.4-12.4); Monocytes # 0.7 K/mcL (0.0-1.3); Monocytes % 7.7 %; Platelet Count 196 K/mcL (140-400); Red Blood Count 4.22 M/mcL (3.82-4.97); Red Cell Distribution Width 12.5 % (11.5-14.5)
[2018-10-10 10:06] LABS: BUN/Creatinine Ratio 22 (6-26); Blood Urea Nitrogen 14 mg/dL (6-20); Carbon Dioxide 24 mEq/L (23-29); Chloride 110 mEq/L (98-107); Glucose 105 mg/dL (70-105); Osmolality,Calculated 293 (280-300); Potassium 4.2 mEq/L (3.5-5.1); Sodium 141 mEq/L (136-145); eGFR For Non-African Americans > 60 (> 60)
[2018-10-10 10:34] LABS: Neutrophils # 5.8 K/mcL (1.6-8.9)
[2018-10-10 10:50] LABS: Platelet Estimate Normal (Normal)
[2018-10-10 12:38] VITALS: BP 146/88
--- NOTE | 2018-10-10 12:39 | Discharge Summary ---
<Giselle Dent - Last Filed: 10/10/18 13:29> - NOTES TO OUTPATIENT PROVIDER Notes to Outpatient Provider: Recommend outpatient EGD/colonoscopy as patient is due for screening colonoscopy and has family history of colon cancer. Consider GI consult as outpatient for possible irritable bowel syndrome. Ventral hernia can be addressed as outpatient. Date of Encounter: 10/10/18 Time of Encounter: 07:30 - Discharge Diagnosis (1) Right upper quadrant abdominal pain Priority: Primary Status: Acute (2) Hernia, ventral Priority: Secondary Status: Acute Qualifiers: Obstruction and gangrene presence: without obstruction or gangrene Qualified Code(s): K43.9 - Ventral hernia without obstruction or gangrene General Surgery Exam Initial Vital Signs Temp Pulse Resp BP Pulse Ox 97.6 F 84 18 172/105 100 10/09/18 17:11 10/09/18 17:11 10/09/18 17:11 10/09/18 17:11 10/09/18 17:11 - Additional Findings VITAL SIGNS: Reviewed. See [facility] GENERAL: In no apparent distress. HEENT: Normocephalic, atraumatic, pupils are equal and reactive, extraocular motions intact, oral mucosa pink and moist CHEST/RESPIRATORY: The thorax is free from signs of trauma. Lung sounds: clear to auscultation, normal respiratory effort CARDIAC: Regular rate and rhythm. Normal S1 and S2, without murmurs, gallops, or rubs. VASCULAR: No Edema. ABDOMEN: Soft. Obese. Mildly tender to RLQ. No peritoneal signs. Bowel sounds present. MUSCULOSKELETAL: Good range of motion of all major joints. Extremities without clubbing, cyanosis or edema. NEUROLOGIC EXAM: Alert and oriented x 3. Speech normal. Follows commands. PSYCHIATRIC: Mood normal. SKIN: No rash or lesions. - Hospital Course Hospital course: Ms. Martinez is a 48 year old female with past medical history of asthma, incisional ventral hernia, and kidney cysts. Surgical history of 2 hernia repairs with mesh, hysterectomy, tubal ligation, appendectomy. Patient presented to ER on 10/09/18 for RUQ abdominal pain. Pain has been chronic and intermittent but acute episode was severe and unremitting. Upon presentation, patient was afebrile and vitals were stable. CBC, BMP, hepatic panel, and UA were all unremarkable. CT abd/pelvis showed no acute intra- abdominal process. There was a finding of known ventral hernia containing loop of bowel, nonobstructed. Already had RUQ ultrasound on 06/26 that was normal. Patient was admitted to surgery service. RUQ abd pain was not related to ventral hernia. Patient was given IV antibiotics. HIDA scan was performed that was negative and showed no acute cholecystitis. Today, pain is improved. No nausea or vomiting. No fever. Tolerating regular diet. Patient is stable for discharge. Recommend outpatient EGD/colonoscopy as patient is due for screening colonoscopy and has family history of colon cancer. Consider GI consult as outpatient for possible irritable bowel syndrome. Ventral hernia can be addressed as out patient. - Time Spent with Patient Total time spent providing and/or coordinating discharge services: Greater than 30 minutes (42 minutes) - Discharge Medications Prescriptions: Continue RX: Turmeric Root Extract [Turmeric] 500 mg PO DAILY RX: Mv,Ca,Fe,Min/FA/Guarana/Caff [One Daily Tablet] 1 each PO DAILY RX: L.acidoph,Paracasei, B.lactis [Probiotic] 1 cap PO DAILY RX: Cyanocobalamin (Vitamin B-12) [Vitamin B-12] 5,000 mcg SL DAILY RX: Cholecalciferol (Vitamin D3) [Vitamin D3] 5,000 unit PO DAILY RX: Potassium 99 mg PO DAILY RX: Magnesium Oxide [Magnesium] 250 mg PO DAILY Home Medications: RX: Cholecalciferol (Vitamin D3) [Vitamin D3] 5,000 unit PO DAILY 07/13/18 [History] RX: Cyanocobalamin (Vitamin B-12) [Vitamin B-12] 5,000 mcg SL DAILY 07/13/18 [History] RX: L.acidoph,Paracasei, B.lactis [Probiotic] 1 cap PO DAILY 07/13/18 [History] RX: Magnesium Oxide [Magnesium] 250 mg PO DAILY 07/13/18 [History] RX: Mv,Ca,Fe,Min/FA/Guarana/Caff [One Daily Tablet] 1 each PO DAILY 07/13/18 [History] RX: Potassium 99 mg PO DAILY 07/13/18 [History] RX: Turmeric Root Extract [Turmeric] 500 mg PO DAILY 07/13/18 [History] Allergies/Adverse Reactions: Allergy/AdvReac Type Severity Reaction Status Date / Time Tree nuts Allergy Difficulty Uncoded 10/09/18 23:27 Breathing Date of admission: 10/09/18 21:45 Primary care physician: PCP NONE Discharging clinician: Pranay Frazier Anticipated date of discharge: 10/10/18 Labs on day of discharge: Labs from last 24 hours 10/10/18 10/10/18 10/10/18 09:41 09:41 05:02 WBC 9.6 RBC 4.22 Hgb 12.2 Hct 36.5 MCV 86.5 MCH 28.9 MCHC 33.4 RDW 12.5 Plt Count 196 MPV 11.4 Immature Gran % 0.6 Seg Neutrophils % 60.0 Lymphocytes % 29.2 Monocytes % 7.7 Eosinophils % 2.0 Basophils % 0.5 Neutrophils # 5.8 Lymphocytes # 2.8 Monocytes # 0.7 Eosinophils # 0.2 Basophils # 0.1 Platelet Estimate Normal Sodium 141 Potassium 4.2 Chloride 110 H Carbon Dioxide 24 BUN 14 Creatinine 0.65 Est GFR ( Amer) > 60 Est GFR (Non-Af Amer) > 60 BUN/Creatinine Ratio 22 Glucose 105 POC Glucose 111 H Calculated Osmolality 293 Calcium 9.0 Total Bilirubin Direct Bilirubin Indirect Bilirubin AST ALT Alkaline Phosphatase Serum Total Protein Albumin Globulin Albumin/Globulin Ratio Urine Color Urine Clarity Urine pH Ur Specific [place] Urine Protein Urine Glucose (UA) Urine Ketones Urine Blood Urine Nitrite Urine Bilirubin Urine Urobilinogen Ur Leukocyte Esterase Urine Microscopic RBC Urine Microscopic WBC Ur Squamous Epith Cells Urine Bacteria Hyaline Casts 10/09/18 10/09/18 10/09/18 19:42 18:35 18:35 WBC 10.9 RBC 4.30 Hgb 12.5 Hct 37.7 MCV 87.7 MCH 29.1 MCHC 33.2 RDW 12.4 Plt Count 240 MPV 11.0 Immature Gran % 0.3 Seg Neutrophils % 60.4 Lymphocytes % 29.3 Monocytes % 7.5 Eosinophils % 2.0 Basophils % 0.5 Neutrophils # 6.6 Lymphocytes # 3.2 Monocytes # 0.8 Eosinophils # 0.2 Basophils # 0.1 Platelet Estimate Sodium 142 Potassium 3.5 Chloride 106 Carbon Dioxide 28 BUN 14 Creatinine 0.78 Est GFR ( Amer) > 60 Est GFR (Non-Af Amer) > 60 BUN/Creatinine Ratio 18 Glucose 103 POC Glucose Calculated Osmolality 295 Calcium 9.2 Total Bilirubin 0.3 Direct Bilirubin 0.1 Indirect Bilirubin 0.2 AST 18 ALT 39 Alkaline Phosphatase 86 Serum Total Protein 7.2 Albumin 4.4 Globulin 2.8 Albumin/Globulin Ratio 1.6 Urine Color Yellow Urine Clarity Clear Urine pH 6.0 Ur Specific [place] 1.016 Urine Protein Negative Urine Glucose (UA) Normal Urine Ketones Negative Urine Blood Trace H Urine Nitrite Negative Urine Bilirubin Negative Urine Urobilinogen Normal Ur Leukocyte Esterase Trace H Urine Microscopic RBC 3-5 H Urine Microscopic WBC 0-3 Ur Squamous Epith Cells Many H Urine Bacteria None Seen Hyaline Casts None Seen - Impressions ITS Impressions Abdomen/Pelvis CT 10/09/18 17:50 IMPRESSION: 1. Ventral hernia along the midline of the lower abdominal wall containing a loop of nonobstructed colon and also demonstrating associated fat stranding and adjacent subcutaneous fat stranding of the abdominal wall. Correlate clinically to exclude the possibility of incarceration at this site. The hernia defect is enlarged measuring 5 cm. 2. No acute intra-abdominal process identified. No evidence for obstructive uropathy. D/ / Leonardo Montague MD / Leonardo Montague MD Interpreting Provider: Leonardo Montague MD Bile Acid Absorption NM 10/10/18 10:41 IMPRESSION: Patency of the common bile duct and cystic duct. No acute cholecystitis. D/ / Eduardo Garcia MD / Eduardo Garcia MD Interpreting Provider: Eduardo Garcia MD - Patient Status Disposition: Home, Self-Care Condition: Fair - Discharge Instructions Follow Up With: [facility] [Outside] Patrick Gonzalez DO [Partnered Physician] - Additional Instructions: Please followup with surgeon Dr. Gonzalez. Please followup with PCP in next 3-5 days. Please return to ER if severely worsening symptoms such as severe abdominal pain, fever, or vomiting. <Pranay Frazier - Last Filed: 10/12/18 12:44> Date of Encounter: 10/10/18 General Surgery Exam Initial Vital Signs Temp Pulse Resp BP Pulse Ox 97.6 F 84 18 172/105 100 10/09/18 17:11 10/09/18 17:11 10/09/18 17:11 10/09/18 17:11 10/09/18 17:11 - Hospital Course Hospital course: Ms. Martinez is a 48 year old female - Time Spent with Patient Total time spent providing and/or coordinating discharge services: Date of admission: 10/09/18 21:45 Primary care physician: PCP NONE - Impressions ITS Impressions Abdomen/Pelvis CT 10/09/18 17:50 IMPRESSION: 1. Ventral hernia along the midline of the lower abdominal wall containing a loop of nonobstructed colon and also demonstrating associated fat stranding and adjacent subcutaneous fat stranding of the abdominal wall. Correlate clinically to exclude the possibility of incarceration at this site. The hernia defect is enlarged measuring 5 cm. 2. No acute intra-abdominal process identified. No evidence for obstructive uropathy. D/ / Leonardo Montague MD / Leonardo Montague MD Interpreting Provider: Leonardo Montague MD Bile Acid Absorption NM 10/10/18 10:41 IMPRESSION: Patency of the common bile duct and cystic duct. No acute cholecystitis. D/ / Eduardo Garcia MD / Eduardo Garcia MD Interpreting Provider: Eduardo Garcia MD - Attending Attestation I examined this patient and my medical decision-making was reviewed with the Resident Physician. I agree with the documented findings, disposition and nikki tment plan as described except to the extent set forth below. The patient is seen and evaluated on morning rounds with the acute care surgery team. She has had resolution of her pain. She does not appear to have gallbladder disease. If testing is negative and her pain is resolved she may be discharged this afternoon. Pranay Frazier MD FACS
== END 2018-10-10 15:26 | disposition home or self-care (01) ==
LOC: 3ANU 17:08 → EMEROOARM 17:08 → 3ANU 22:41
PROVIDERS: ADMIT Surgery; ATTEND Surgery